=== PATIENT | male | born 1950 | race Caucasian/White ===

== ENCOUNTER 2018-01-25 08:00 | Day surgery (SDC) | payer OTHER ==
[~2018-01-25] VITALS: Ht 170.2 cm; Wt 87.1 kg
[~2018-01-25 08:00] MED LIST: ATORVASTATIN CA20 MG PO; COMBIVENT RESPIM4 GM INH; DOXEPIN HCL10 MG PO; LISINOPRIL-HCT1 EAC2 PO; MULTIVITAMINS1 EAC7 PO; NORCO 5-325 TA1 EACH PO; SYMBICORT 16010.2 GM INH
== END 2018-01-25 11:39 | disposition home or self-care (01) ==
LOC: DSVR 08:00 → OPS 08:00 → DS 09:30 → OPS 09:30
PROVIDERS: Ophthalmology
PROC: 08RJ3JZ Replacement of Right Lens with Synthetic Substitute, Percutaneous Approach (ICD-10-PCS; principal; 2018-01-25 09:30)
PROC: 08923ZZ Drainage of Right Anterior Chamber, Percutaneous Approach (ICD-10-PCS; 2018-01-25 09:30)
DX: H25.13 Age-related nuclear cataract, bilateral (principal); H40.1411 Capsular glaucoma with pseudoexfoliation of lens, right eye, mild stage; H40.89 Other specified glaucoma; E78.00 Pure hypercholesterolemia, unspecified; I10 Essential (primary) hypertension; K74.60 Unspecified cirrhosis of liver; K75.9 Inflammatory liver disease, unspecified; F32.9 Major depressive disorder, single episode, unspecified; Z79.52 Long term (current) use of systemic steroids; Z79.899 Other long term (current) drug therapy
CPT/HCPCS: J2250